=== PATIENT | female | born 1955 ===

== ENCOUNTER 2018-03-15 01:23 | Emergency (ER) | payer MEDICARE ==
[2018-03-15 01:23] VITALS: BMI 29.5
--- NOTE | 2018-03-15 01:44 | C.PDOC ---
History Of Present Illness 62 year old female presents to the ED c/o upper abdominal pain. Patient reports she ate late last night and immediately went to sleep, woke up with abdominal bloating and worsening abdominal pain associated with nausea and 3 episodes of vomiting. Patient also states her pain is now radiating to her bilateral flanks. Patient denies fever, chills, diarrhea, CP, SOB, urinary symptoms. Time Seen by Provider: 03/15/18 01:35 Chief Complaint (Nursing): Abdominal Pain History Per: Patient History/Exam Limitations: no limitations Onset/Duration Of Symptoms: Days (1) Current Symptoms Are (Timing): Still Present Context: Food Location Of Pain/Discomfort: Epigastric Radiation Of Pain To:: Flank Quality Of Discomfort: "Pain" Associated Symptoms: Nausea, Vomiting. denies: Diarrhea Alleviating Factors: None Recent travel outside of the [place]: No Additional History Per: Patient Abnormal Vaginal Bleeding: No Past Medical History Reviewed: Historical Data, Nursing Documentation, Vital Signs Vital Signs: Last Vital Signs Temp 97.9 F 03/15/18 05:15 Pulse 78 03/15/18 05:15 Resp 14 03/15/18 05:15 BP 146/76 03/15/18 05:15 Pulse Ox 98 03/15/18 05:15 - Medical History PMH: HTN, Hypercholesterolemia, Osteoporosis Denies: Chronic Kidney Disease Surgical History: Endoscopy - [facility] Procedures CLOSED ENDOSCOPIC BIOPSY OF LARGE INTESTINE (04/11/14) Family History: States: Unknown Family Hx - Social History Hx Tobacco Use: No Hx Alcohol Use: No Hx Substance Use: No - Immunization History Hx Tetanus Toxoid Vaccination: No Hx Influenza Vaccination: No Hx Pneumococcal Vaccination: No Review Of Systems Constitutional: Negative for: Fever, Chills Cardiovascular: Negative for: Chest Pain Respiratory: Negative for: Shortness of Breath Gastrointestinal: Positive for: Nausea, Vomiting, Abdominal Pain. Negative for : Diarrhea, Constipation Genitourinary: Negative for: Dysuria, Hematuria Musculoskeletal: Positive for: Back Pain Skin: Negative for: Rash Physical Exam - Physical Exam Appears: Non-toxic, No Acute Distress Skin: Normal Color, Warm, Dry Head: Atraumatic, Normacephalic Eye(s): bilateral: Normal Inspection Oral Mucosa: Moist Neck: Normal ROM, Supple Chest: Symmetrical Cardiovascular: Rhythm Regular Respiratory: Normal Breath Sounds, No Rales, No Rhonchi, No Wheezing Gastrointestinal/Abdominal: Soft, Tenderness (upper abdomen), No Guarding, No Rebound Back: No CVA Tenderness Extremity: Normal ROM, No Tenderness, No Swelling Neurological/Psych: Oriented x3, Normal Speech Gait: Steady ED Course And Treatment - Laboratory Results Result Diagrams: 03/15/18 02:09 03/15/18 02:09 O2 Sat by Pulse Oximetry: 97 (ON RA) Pulse Ox Interpretation: Normal - CT Scan/US CT abd/pelvis Other Rad Studies (CT/US): Read By Radiologist, Radiology Report Reviewed CT/US Interpretation: COMPARISON: No relevant prior studies available. FINDINGS: Lower thorax: Minimal interstitial disease medially below the left hilum (superior segment of the. LLL). ABDOMEN: Liver: Normal. No solid mass. Gallbladder and bile ducts: Normal. No calcified stones. No ductal dilatation. Pancreas: Normal. No ductal dilatation. Spleen: No splenomegaly. Probable small accessory spleen anterior to the upper splenic pole. Adrenals: Normal. No mass. Kidneys and ureters: No hydronephrosis. Faint indeterminate calcification laterally in the left kidney. (perhaps associated with focal renal scarring). Stomach and bowel: No bowel obstruction. No mucosal thickening. Scattered colonic diverticuli. Appendix: A long normal appendix is visualized. Bladder: Unremarkable as visualized. No mass nor stones. Reproductive: Unremarkable as visualized. ABDOMEN and PELVIS: Intraperitoneal space: Normal. No free air. No significant fluid collection. Bones/joints: No acute fracture nor dislocation. Soft tissues: Unremarkable. Vasculature: Normal. No abdominal aortic aneurysm. Lymph nodes: Normal. No enlarged lymph nodes. IMPRESSION: No acute bowel pathology. No hydronephrosis is appreciated. No radiodense urinary tract stones are visualized. Possible mild interstitial pneumonitis in the superior segment of the LLL. Thank you for allowing us to participate in the care of your patient. Dictated and Authenticated by: Kelly Peck MD. 03/15/2018 4:51 AM Eastern Time ([place] & [place]) . PELVIS: Progress Note: Plan: - Labs. - Abd/pelvis CT scan. - Toradol 30 mg IV. - IV fluids. Pt still c/o of epigastric lauren, Pepcid IV ordered. On reassessment pt reports feeeling better, in no acute distress. All labs incl Abd/pelvis CT reviewed. Abd is soft NT, Pt will follow up with PMD. Return precautions were given. Room Service [place] understand and agreed with plan Disposition Counseled Patient/Family Regarding: Diagnosis - Disposition Disposition: HOME/ ROUTINE Disposition Time: 05:06 Condition: STABLE Additional Instructions: Please follow up with pMD Take meds as directed Return to ER if worse Prescriptions: Famotidine [Pepcid] 20 mg PO DAILY #20 tab Instructions: Acute Abdomen (Belly Pain), Adult (DC) Forms: [employer] (Iranian) - Clinical Impression Clinical Impression: Abdominal pain - PA / TRANSPORTATION AGENT / Resident Statement MD/DO has reviewed & agrees with the documentation as recorded. - Scribe Statement The provider has reviewed the documentation as recorded by the Scribe Jose Ramon Regan All medical record entries made by the Scribe were at my direction and personally dictated by me. I have reviewed the chart and agree that the record accurately reflects my personal performance of the history, physical exam, medical decision making, and the department course for this patient. I have also personally directed, reviewed, and agree with the discharge instructions and disposition.
[2018-03-15] MEDS ORDERED: Sodium Chloride 0.9% 500 ML IV ONE (01:45)
[2018-03-15 02:00] LABS: SQUAMOUS EPITHIAL 1 /hpf (0-5); URINE BACTERIA RARE (<OCC); URINE BILIRUBIN NEGATIVE (NEGATIVE); URINE BLOOD 3+ (NEGATIVE); URINE CLARITY Clear (Clear); URINE COLOR Yellow (YELLOW); URINE GLUCOSE (UA) NORMAL (Normal); URINE LEUKOCYTE ESTERASE NEG Leu/uL (Negative); URINE PROTEIN 1+ mg/dL (NEGATIVE); URINE UROBILINOGEN NORMAL mg/dL (0.2-1.0)
[2018-03-15] MEDS ORDERED: Sodium Chloride 0.9% 1,000 ML ONE (02:12)
[2018-03-15 02:14] LABS: BASO # 0.1 K/uL (0.0-0.2); BASO % 0.8 % (0.0-2.0); EOS % 0.4 % (0.0-4.0); HEMOGLOBIN 13.4 g/dL (11.0-16.0); LYMPH % 14.7 % (20.0-40.0); MEAN CELL VOLUME 87.1 fL (81.0-99.0); MEAN CORPUSCULAR HEMOGLOBIN 29.2 pg (27.0-31.0); MEAN CORPUSCULAR HGB CONC 33.5 g/dL (33.0-37.0); MEAN PLATELET VOLUME 9.6 fL (7.2-11.7); MONO # 0.4 K/uL (0.0-0.8); MONO % 5.8 % (0.0-10.0); NEUT # 5.4 K/uL (1.8-7.0); NEUT % 78.3 % (50.0-75.0); NRBC % 0.1 % (0.0-2.0); RBC 4.58 Mil/uL (3.80-5.20); RED CELL DISTRIBUTION WIDTH 13.6 % (11.5-14.5); WHITE BLOOD COUNT 6.9 K/uL (4.8-10.8)
[2018-03-15 02:26] LABS: ALB/GLOB RATIO 1.2 (1.0-2.1); ALBUMIN 4.6 g/dL (3.5-5.0); ALT/SGPT 21 U/L (9-52); AST/SGOT 22 U/L (14-36); BLOOD UREA NITROGEN 11 mg/dL (7-17); CALCIUM 9.2 mg/dl (8.6-10.4); GFR AFRICAN-AMERICAN > 60; GFR NON-AFRICAN AMERICAN > 60; LIPASE 76 U/L (23-300)
[2018-03-15 05:16] VITALS: BP 146/76; PULSE 78; RESP 14; TEMP 97.9
[2018-03-15 05:26] VITALS: O2SAT 97
--- NOTE | 2018-03-15 10:31 | CT ---
PROCEDURE: CT Abdomen and Pelvis without intravenous contrast HISTORY: b/l flank pain COMPARISON: None. TECHNIQUE: Contiguous images were obtained from the domes of the diaphragms to the upper thighs without the administration of intravenous contrast. Oral contrast was not administered. Radiation dose: Total exam DLP = 915.9 mGy-cm. This CT exam was performed using one or more of the following dose reduction techniques: Automated exposure control, adjustment of the mA and/or kV according to patient size, and/or use of iterative reconstruction technique. FINDINGS: LOWER THORAX: 3 mm nodule in the peripheral right middle lobe (series 3, image 11). 6 mm nodule in the peripheral right lower lobe (series 3, image 18). 4 mm nodule in the medial right lower lobe (series 3, image 21). Cluster of nodular densities in the medial left lower lobe (series 3, images 4 - 20). LIVER: Unremarkable. No gross lesion or ductal dilatation. GALLBLADDER AND BILE DUCTS: Unremarkable. PANCREAS: Unremarkable. No gross lesion or ductal dilatation. SPLEEN: Unremarkable. ADRENALS: Unremarkable. No mass. KIDNEYS AND URETERS: Left renal interpolar scarring with small area of nonspecific rim calcification. No hydronephrosis. No solid mass. VASCULATURE: Unremarkable. No aortic aneurysm. BOWEL: Scattered few colonic diverticula. No obstruction. No gross mural thickening. APPENDIX: Unremarkable. Normal appendix. PERITONEUM: Unremarkable. No free fluid. No free air. LYMPH NODES: Cluster of small prominent lymph nodes near the celiac axis. BLADDER: Unremarkable. REPRODUCTIVE: Unremarkable. BONES: No acute fracture. Degenerative changes. OTHER FINDINGS: None. IMPRESSION: 3-6 mm right middle and lower lobe pulmonary nodules. Cluster of nodular densities in the medial left lower lobe. Short interval CT follow-up is advised to assess for resolution/stability. No clear evidence of recently passed genitourinary calculus.
== END 2018-03-15 05:16 | disposition home or self-care (01) ==
LOC: C.ER 01:23
DX: R10.13 Epigastric pain (principal)
CPT/HCPCS: 74176; 80053; 81001; 83690; 85025; 96361; 96374; 96375; 99284; J1885; J2405; J7040

== ENCOUNTER 2018-09-19 06:45 | Day surgery (SDC) | payer MEDICARE ==
[2018-09-19 07:33] VITALS: BMI 29.7
--- NOTE | 2018-09-19 08:39 | CP.SDSHP ---
Same Day Surgery H & P - History Proposed Procedure: COLONSCOPY Pre-Op Diagnosis: SEE NOTES - Previous Medical/Surgical History Cardiac: Hypertension Misc: Other Pain: 4.Moderate Pain - Allergies Allergies: Allergies No Known Allergies Allergy (Verified 09/19/18 07:32) - Physical Exam General Appearance: N Vital Signs: Vital Signs 09/19/18 07:20 Temperature 98.4 F Pulse Rate 80 Respiratory 20 Rate Blood Pressure 139/87 O2 Sat by Pulse 97 Oximetry Mental Status: Alert & Oriented x3 Neuro: WNL Heart: Other Lungs: WNL GI: Other - {Optional Preform as Required} Breast: WNL Abdomen: Other Rectal: Other Integument: WNL : WNL Ortho: WNL ENT: WNL - Impression Pt. Evaluated Today:Candidate for Anesthesia & Procedure: Yes - Date & Time Time: 08:38 Short Stay Discharge - Short Stay Discharge Admitting Diagnosis/Reason for Visit: DIARRHEA Disposition: HOME/ ROUTINE
[2018-09-19] MEDS ORDERED: Propofol 10 mg/ml Inj (20 ML) ONE (08:42)
[2018-09-19] MEDS ORDERED: Glucagon Recombinant 1 mg Inj ONE (08:47)
[2018-09-19 09:45] VITALS: TEMP 97.5
[2018-09-19] MEDS: Belladonna-Phenobarbital PO ONE (10:00)
[2018-09-19 11:07] VITALS: BP 138/83; PULSE 96; RESP 14; O2SAT 99
== END 2018-09-19 10:15 | disposition home or self-care (01) ==
LOC: C.ENDO 06:45
PROVIDERS: ATTEND Specialist
DX: R19.7 Diarrhea, unspecified (principal); R10.9 Unspecified abdominal pain; D12.4 Benign neoplasm of descending colon; K57.30 Diverticulosis of large intestine without perforation or abscess without bleeding; K58.9 Irritable bowel syndrome, unspecified
CPT/HCPCS: 45380; 88305; J1610; J2704; J7040

== ENCOUNTER 2018-10-23 10:54 | Outpatient (CLI) | payer MEDICARE | END 2018-10-23 10:55 | disposition home or self-care (01) | LOC: C.MAMMO 10:54 | DX: Z12.31 Encounter for screening mammogram for malignant neoplasm of breast (principal) ==